=== PATIENT | male | born 1965 | race Caucasian/White ===

== ENCOUNTER 2019-06-11 07:38 | Inpatient (IN) ==
--- NOTE | 2019-06-11 07:56 | Emergency Department Note ---
Disposition Clinical Impression: Suicidal ideation Hyperglycemia due to type 2 diabetes mellitus Qualifiers: Diabetes mellitus longterm insulin use: without longterm use Qualified Code(s): E11.65 - Type 2 diabetes mellitus with hyperglycemia Disposition: Admitted As Inpatient Condition: Undetermined Referrals: NONE,PCP [Primary Care Provider] - Forms: ED Satisfaction Letter Time of Disposition: 14:57 Psych HPI - General Chief Complaint: ED Psychiatric Symptoms Stated Complaint: psych eval Time Seen by Provider: 06/11/19 07:43 Source: patient Limitations: no limitations Nursing Notes Reviewed: Yes Vital Signs Reviewed: Yes - History of Present Illness HPI Narrative: Patient is a 53-year-old male with past medical history including anxiety and depression, hypertension, type 2 diabetes mellitus, Parkinson's disease, recent diagnosis of atrial fibrillation on Coumadin, COPD, presenting with chief complaint of suicidal ideation for one week. Patient states he has a history of suicidal ideation and attempt by prescription medication overdose. He states he has ran out of all of his medications this past week. He has not been able to afford the refill prescriptions. He states his director case management at [employer] has been working with him to afford his medications. He states this past week, he has suicidal ideation. He states he has a plan to jump off the second floor [place] headfirst into the ground or on our in the highway into traffic. He told a worker at the [employer] today who brought him in for further evaluation. The patient also endorses he has visual hallucinations and states he sees animals running around such as lying and elephants. He states he knows that they are not actually there. He denies auditory hallucinations. He denies alcohol use, illicit drug use. He denies homicidal ideation. Patient denies palpitations, chest pain, fevers or chills, changes, shortness of breath, abdominal pain, nausea or vomiting, any other complaints at this time. - Related Data Previous Rx's Medication Instructions Recorded Aspirin 81 mg PO DAILY #14 tab.chew 06/03/19 Atorvastatin [Lipitor] 10 mg PO HS #14 tablet 06/03/19 Benztropine [Cogentin] 0.5 mg PO HS #14 tablet 06/03/19 Benztropine [Cogentin] 2 mg PO HS #28 tablet 06/03/19 Carbidopa/Levodopa [Sinemet 1 each PO DAILY #14 tablet 07/19/19 10/100] Carvedilol 3.125 mg PO DAILY #14 tablet 06/03/19 Citalopram Hydrobromide 10 mg PO DAILY #14 tablet 06/03/19 [Citalopram HBr] Divalproex (12 HR) [Depakote (12 500 mg PO QAM #14 tablet. 06/03/19 HR)] Divalproex (12 HR) [Depakote (12 750 mg PO HS #42 tablet. 06/03/19 HR)] Finasteride [Proscar] 5 mg PO DAILY #14 tablet 06/03/19 GlipiZIDE [Glipizide Xl] 5 mg PO DAILY #14 tab.er.24 06/03/19 Lisinopril 2.5 mg PO DAILY #14 tablet 06/03/19 [place] [facility] [Eskalith] 450 mg PO HS #14 tablet.er 06/03/19 Perphenazine 4 mg PO BID #28 tablet 06/03/19 Warfarin Sodium 3 mg PO DAILY #14 tablet 06/03/19 hydrOXYzine HCl [Hydroxyzine HCl] 50 mg PO DAILY #14 tablet 06/03/19 metFORMIN [Glucophage] 1,000 mg PO BIDWM 14 Days tablet 06/03/19 Allergies Allergy/AdvReac Type Severity Reaction Status Date / Time naproxen [From Naprosyn] AdvReac Difficulty Verified 06/05/19 18:31 Breathing All systems ED: reviewed and negative except as stated. Review of Systems: As Per HPI Constitutional: Denies: fever, chills Eyes: Denies: vision change ENT ED: Denies: congestion Cardiovascular: Denies: chest pain, palpitations Respiratory: Denies: cough, dyspnea Gastrointestinal: Denies: abdominal pain, nausea, vomiting Genitourinary: Denies: dysuria, hematuria Neurological: Denies: headache, weakness Psychiatric: Reports: anxiety, suicidal thoughts, visual hallucinations. Denies: homicidal thoughts, auditory hallucinations Past Medical History - Past Medical History Attestation: Yes The following information was validated with the patient. Source: patient, old records reviewed Medical history: Reports: atrial fibrillation, COPD, DVT, diabetes, hypertension, myocardial infarction, seizures, other Psychiatric history: Reports: no psych history - Social History Smoking Status: Never smoker Smokeless Tobacco Status: No Alcohol use: Reports: occasionally Drug use: Reports: none Physical Exam - General Limitations: no limitations General appearance: alert, in no apparent distress - Head Head exam: atraumatic, normocephalic - Eye Eye exam: Present: normal appearance, EOMI - ENT ENT exam: normal exam, mucous membranes moist - Neck Neck exam: Present: normal inspection, trachea midline - Chest Chest inspection: Present: normal inspection, symmetric chest wall rise - Respiratory Respiratory exam: Present: normal lung sounds bilaterally. Absent: respiratory distress, wheezes - Cardiovascular Cardiovascular exam: Present: regular rate, normal rhythm, normal heart sounds. Absent: systolic murmur - Abdominal Exam Abdominal exam: Present: soft, Non-Tender. Absent: distention - Extremities Exam Extremities exam: Present: normal capillary refill. Absent: pedal edema, calf tenderness - Neurological Exam Neurological exam: Present: alert, oriented X3 - Psychiatric Psychiatric exam: Present: anxious, suicidal ideation - Skin Skin exam: Present: warm, dry. Absent: diaphoresis, pallor Course Vital Signs Temperature 97.7 F 06/11/19 07:39 Pulse Rate 87 06/11/19 07:39 Respiratory Rate 18 06/11/19 07:39 Blood Pressure 174/67 06/11/19 07:39 O2 Sat by Pulse Oximetry 97 06/11/19 07:39 Temperature 97.7 F 06/11/19 07:48 Pulse Rate 87 06/11/19 07:48 Respiratory Rate 18 06/11/19 07:48 Blood Pressure 174/67 06/11/19 07:48 O2 Sat by Pulse Oximetry 97 06/11/19 07:48 Oxygen Delivery Oxygen Delivery Room Air Psych - MDM Narrative Medical decision making narrative: Patient is presenting with suicidal ideation and has a plan. He has been out of his medications for 1 week as he cannot afford his refills. Patient has been placed on an involuntary hold and pink slip has been signed. He will benefit from psychiatric evaluation. We will obtain medical clearance including CBC, BMP, alcohol, salicylate, acetaminophen levels, urine drug screen, urinalysis. Will also obtain ekg as he has a history of AFib and PT/INR. 09:15 Patient's glucose is 503. He has been off his oral hypoglycemic medications for the past week. He is not altered, tachycardic. We will give him 10 units subcutaneous insulin regular and do Accu-Chek 30 minutes after. 10;15 Will obtain repeat accu-check and call [facility] for evaluation. 10:20 Patient's repeat glucose is 277. Patient is medically cleared. [facility] has been called to evaluate the patient. 12:45 1A would like us to talk to hospitalist to admit to them to get the patient back on his medications and have hi glucose levels controlled prior to their evaluation and re-evaluate in 24 hours. However patient does not meet inpatient criteria for an acute medical bed. He does not have HHs or DKA. He does not have any chest pain, vomiting, abnormal vital signs, abdominal pain. 13:[address] Galan. Hospitalist will not accept the patient. He does not meet criteria for an acute bed. They are happy to be consultation to help assist with the patient's other home medications when the patient is admitted to a psychiatric bed. 14:00 Discussed with psychiatry who would like a repeat blood glucose and the RN will talk to the psychiatrist again about admitting the patient. Repeat blood glucose was 168. 14:50 Discussed with [facility] who will admit the patient. - Lab Data Result diagrams: 06/11/19 07:52 06/11/19 07:52 Lab Results 06/11/19 06/11/19 06/11/19 Range/Units 07:52 07:52 07:55 WBC 6.8 (4.3-11.1) K/mcL RBC 4.25 (4.19-5.50) M/mcL Hgb 13.1 (12.9-16.9) g/dL Hct 39.2 (37.5-50.1) % MCV 92.2 (83.0-100.0) fL MCH 30.8 (28.0-33.3) pg MCHC 33.4 (31.6-35.5) g/dL RDW 13.2 (11.5-14.5) % Plt Count 181 (140-400) K/mcL MPV 9.6 (9.4-12.4) fL Immature Gran % 0.3 (0-4) % Seg Neutrophils % 56.5 % Lymphocytes % 23.9 % Monocytes % 8.7 % Eosinophils % 9.7 % Basophils % 0.9 % Neutrophils # 3.9 (1.6-8.9) K/mcL Lymphocytes # 1.6 (0.6-4.6) K/mcL Monocytes # 0.6 (0.0-1.3) K/mcL Eosinophils # 0.7 H (0.0-0.6) K/mcL Basophils # 0.1 (0.0-0.2) K/mcL PT 11.1 (9.4-12.1) Seconds INR 1.0 Sodium 131 L (136-145) mEq/L Potassium 4.6 (3.5-5.1) mEq/L Chloride 100 (98-107) mEq/L Carbon Dioxide 24 (23-29) mEq/L BUN 14 (6-20) mg/dL Creatinine 1.40 H (0.70-1.30) mg/dL Est GFR ( Amer) > 60 (> 60) Est GFR (Non-Af Amer) 53 L (> 60) BUN/Creatinine Ratio 10 (6-26) Glucose 503 H* (70-105) mg/dL POC Glucose (70-99) mg/dL Calculated Osmolality 295 (280-300) Calcium 9.0 (8.6-10.3) mg/dL Urine Color (Yellow) Urine Clarity (Clear) Urine pH (5.0-8.0) pH Units Ur Specific [place] (1.010-1.025) Urine Protein (Neg-Trace) mg/dL Urine Glucose (UA) (Normal) mg/dL Urine Ketones (Negative) mg/dL Urine Blood (Negative) Urine Nitrite (Negative) Urine Bilirubin (Negative) Urine Urobilinogen (Normal) mg/dL Ur Leukocyte Esterase (Negative) Salicylates < 2.5 L (15.0-30.0) mg/dL Urine Opiates Screen (Bmxdoe=394) ng/mL Ur Buprenorphine Scrn (Cutoff=5) ng/mL Acetaminophen < 10 L (10-20) mcg/mL Ur Barbiturates Screen (Skuomh=942) ng/mL Ur Phencyclidine Scrn (Cutoff=25) ng/mL Ur Amphetamines Screen (Wenhyk=1802) ng/mL U Benzodiazepines Scrn (Gijrty=658) ng/mL Urine Cocaine Screen (Cutoff= 300) ng/mL U Marijuana (THC) Screen (Cutoff = 50) ng/mL Ur Drug Screen Interp Ethyl Alcohol < 10 (Less than 10) mg/dL 06/11/19 06/11/19 06/11/19 Range/Units 08:55 08:55 10:19 WBC (4.3-11.1) K/mcL RBC (4.19-5.50) M/mcL Hgb (12.9-16.9) g/dL Hct (37.5-50.1) % MCV (83.0-100.0) fL MCH (28.0-33.3) pg MCHC (31.6-35.5) g/dL RDW (11.5-14.5) % Plt Count (140-400) K/mcL MPV (9.4-12.4) fL Immature Gran % (0-4) % Seg Neutrophils % % Lymphocytes % % Monocytes % % Eosinophils % % Basophils % % Neutrophils # (1.6-8.9) K/mcL Lymphocytes # (0.6-4.6) K/mcL Monocytes # (0.0-1.3) K/mcL Eosinophils # (0.0-0.6) K/mcL Basophils # (0.0-0.2) K/mcL PT (9.4-12.1) Seconds INR Sodium (136-145) mEq/L Potassium (3.5-5.1) mEq/L Chloride (98-107) mEq/L Carbon Dioxide (23-29) mEq/L BUN (6-20) mg/dL Creatinine (0.70-1.30) mg/dL Est GFR ( Amer) (> 60) Est GFR (Non-Af Amer) (> 60) BUN/Creatinine Ratio (6-26) Glucose (70-105) mg/dL POC Glucose 277 H (70-99) mg/dL Calculated Osmolality (280-300) Calcium (8.6-10.3) mg/dL Urine Color Yellow (Yellow) Urine Clarity Clear (Clear) Urine pH 7.0 (5.0-8.0) pH Units Ur Specific [place] 1.030 H (1.010-1.025) Urine Protein Negative (Neg-Trace) mg/dL Urine Glucose (UA) >=1000 H (Normal) mg/dL Urine Ketones Negative (Negative) mg/dL Urine Blood Negative (Negative) Urine Nitrite Negative (Negative) Urine Bilirubin Negative (Negative) Urine Urobilinogen Normal (Normal) mg/dL Ur Leukocyte Esterase Negative (Negative) Salicylates (15.0-30.0) mg/dL Urine Opiates Screen Negative (Ptwwjv=210) ng/mL Ur Buprenorphine Scrn Negative (Cutoff=5) ng/mL Acetaminophen (10-20) mcg/mL Ur Barbiturates Screen Negative (Cajcjo=094) ng/mL Ur Phencyclidine Scrn Negative (Cutoff=25) ng/mL Ur Amphetamines Screen Negative (Nxghdh=8521) ng/mL U Benzodiazepines Scrn Negative (Sjsuzs=792) ng/mL Urine Cocaine Screen Negative (Cutoff= 300) ng/mL U Marijuana (THC) Screen Negative (Cutoff = 50) ng/mL Ur Drug Screen Interp See Below Ethyl Alcohol (Less than 10) mg/dL 06/11/19 Range/Units 14:08 WBC (4.3-11.1) K/mcL RBC (4.19-5.50) M/mcL Hgb (12.9-16.9) g/dL Hct (37.5-50.1) % MCV (83.0-100.0) fL MCH (28.0-33.3) pg MCHC (31.6-35.5) g/dL RDW (11.5-14.5) % Plt Count (140-400) K/mcL MPV (9.4-12.4) fL Immature Gran % (0-4) % Seg Neutrophils % % Lymphocytes % % Monocytes % % Eosinophils % % Basophils % % Neutrophils # (1.6-8.9) K/mcL Lymphocytes # (0.6-4.6) K/mcL Monocytes # (0.0-1.3) K/mcL Eosinophils # (0.0-0.6) K/mcL Basophils # (0.0-0.2) K/mcL PT (9.4-12.1) Seconds INR Sodium (136-145) mEq/L Potassium (3.5-5.1) mEq/L Chloride (98-107) mEq/L Carbon Dioxide (23-29) mEq/L BUN (6-20) mg/dL Creatinine (0.70-1.30) mg/dL Est GFR ( Amer) (> 60) Est GFR (Non-Af Amer) (> 60) BUN/Creatinine Ratio (6-26) Glucose (70-105) mg/dL POC Glucose 168 H (70-99) mg/dL Calculated Osmolality (280-300) Calcium (8.6-10.3) mg/dL Urine Color (Yellow) Urine Clarity (Clear) Urine pH (5.0-8.0) pH Units Ur Specific [place] (1.010-1.025) Urine Protein (Neg-Trace) mg/dL Urine Glucose (UA) (Normal) mg/dL Urine Ketones (Negative) mg/dL Urine Blood (Negative) Urine Nitrite (Negative) Urine Bilirubin (Negative) Urine Urobilinogen (Normal) mg/dL Ur Leukocyte Esterase (Negative) Salicylates (15.0-30.0) mg/dL Urine Opiates Screen (Iehiqj=765) ng/mL Ur Buprenorphine Scrn (Cutoff=5) ng/mL Acetaminophen (10-20) mcg/mL Ur Barbiturates Screen (Ljhrbw=809) ng/mL Ur Phencyclidine Scrn (Cutoff=25) ng/mL Ur Amphetamines Screen (Ztouap=4710) ng/mL U Benzodiazepines Scrn (Hxnvua=138) ng/mL Urine Cocaine Screen (Cutoff= 300) ng/mL U Marijuana (THC) Screen (Cutoff = 50) ng/mL Ur Drug Screen Interp Ethyl Alcohol (Less than 10) mg/dL - EKG Data EKG attestation: Yes I reviewed and interpreted this EKG. EKG results narrative: EKG obtained at 8 AM shows sinus rhythm with heart rate 76, CT interval 126, QRS duration 90, QTC 436, no ST elevation or depression, no old EKG to compare to. Psychiatric Medical Clearance - Medical Clearance Checklist Medical History: No Social History Section defined Current Vitals: Last Vital Signs Temp 97.7 F 06/11/19 07:48 Pulse 87 06/11/19 07:48 Resp 18 06/11/19 07:48 BP 174/67 06/11/19 07:48 Pulse Ox 97 06/11/19 07:48 Psychiatric Lab Panel: Drug Levels and Toxicity 06/11/19 06/11/19 07:52 08:55 Urine Opiates Screen Negative Acetaminophen < 10 L Ur Barbiturates Screen Negative Ur Phencyclidine Scrn Negative Ur Amphetamines Screen Negative U Benzodiazepines Scrn Negative Urine Cocaine Screen Negative U Marijuana (THC) Screen Negative Ethyl Alcohol < 10 Abnormal Labs: Abnormal lab results Eosinophils # 0.7 K/mcL (0.0-0.6) H 06/11/19 07:52 Sodium 131 mEq/L (136-145) L 06/11/19 07:52 Creatinine 1.40 mg/dL (0.70-1.30) H 06/11/19 07:52 Est GFR (Non-Af Amer) 53 (> 60) L 06/11/19 07:52 Glucose 503 mg/dL (70-105) H* 06/11/19 07:52 POC Glucose 168 mg/dL (70-99) H 06/11/19 14:08 Ur Specific [place] 1.030 (1.010-1.025) H 06/11/19 08:55 Urine Glucose (UA) >=1000 mg/dL (Normal) H 06/11/19 08:55 Salicylates < 2.5 mg/dL (15.0-30.0) L 06/11/19 07:52 Acetaminophen < 10 mcg/mL (10-20) L 06/11/19 07:52 Statement of Medical Clearance: I have evaluated the patient, reviewed diagnostic information, and certify that the patient's medical condition is sufficiently stable that transfer to the psychiatric unit does not pose a significant risk of deterioration. Attestation Statement - Attestation Attestation: Patient was seen with resident physician. I reviewed the history, physical, assessment and plan, and agree with the findings. I also personally evaluated this patient and had [id number] time with this patient. 53-year-old male presents to the emergency department with suicidal ideation. Patient has a history of same. Patient says he is out of his medication for last week or so. This includes medications for A. fib. He said he cannot get them filled physical can afford it. He is currently living at [facility]. He said he feels very depressed and he wants to jump from a balcony or plan on the highway and get hit by a car. He has had suicide attempts in the past. He denies alcohol drugs or other symptoms or complaints at this time. Review systems as above remainder negative. Physical exam vital signs are stable. ENT is unremarkable. Heart regular rhythm and rate. Lungs clear. Abdomen soft nontender. Extremity is unremarkable. Neurologically intact. Skin no rashes. Psych patient is de pressed and has suicidal ideation. ED course. We will do usual psychiatric labs. We will have one a come evaluate the patient. We will also check an EKG this is a history of A. fib. Once medically cleared we will have psychiatry evaluate and help with disposition for this patient. Patient did have an elevated glucose. This resolved with one dose of insulin, and remained stable after lunch. This was not a medically limiting issue. We did speak with the psychiatry service as well as the h ospitalist service about this. He was placed on an involuntary admission status at the time of his arrival in the ER after our initial interview. Hemodynamically he remained stable throughout his stay. The psychiatry department agree to admit the patient. He will be followed by internal medicine as indicated. Agree with the resident physician assessment and plan. ED procedures.I reviewed the patient's EKG as well as the resident physician interpretation and I agree with the findings.
[2019-06-11 08:19] LABS: Basophils # 0.1 K/mcL (0.0-0.2); Basophils % 0.9 %; Eosinophils # 0.7 K/mcL (0.0-0.6); Eosinophils % 9.7 %; Hematocrit 39.2 % (37.5-50.1); Hemoglobin 13.1 g/dL (12.9-16.9); Immature Granulocytes % 0.3 % (0-4); Lymphocytes # 1.6 K/mcL (0.6-4.6); Lymphocytes % 23.9 %; Mean Corpuscular HGB Conc 33.4 g/dL (31.6-35.5); Mean Corpuscular Hemoglobin 30.8 pg (28.0-33.3); Mean Corpuscular Volume 92.2 fL (83.0-100.0); Mean Platelet Volume 9.6 fL (9.4-12.4); Monocytes # 0.6 K/mcL (0.0-1.3); Monocytes % 8.7 %; Neutrophils # 3.9 K/mcL (1.6-8.9); Platelet Count 181 K/mcL (140-400); Red Blood Count 4.25 M/mcL (4.19-5.50); Red Cell Distribution Width 13.2 % (11.5-14.5); Segmented Neutrophils % 56.5 %; White Blood Count 6.8 K/mcL (4.3-11.1)
[2019-06-11 08:28] LABS: Prothrombin Time 11.1 Seconds (9.4-12.1)
[2019-06-11 08:40] LABS: Acetaminophen < 10 mcg/mL (10-20); BUN/Creatinine Ratio 10 (6-26); Blood Urea Nitrogen 14 mg/dL (6-20); Carbon Dioxide 24 mEq/L (23-29); Chloride 100 mEq/L (98-107); Ethanol < 10 mg/dL (Less than 10); Glucose 503 mg/dL (70-105); Osmolality,Calculated 295 (280-300); Potassium 4.6 mEq/L (3.5-5.1); Salicylate < 2.5 mg/dL (15.0-30.0); Sodium 131 mEq/L (136-145); eGFR For African Americans > 60 (> 60); eGFR For Non-African Americans 53 (> 60)
[2019-06-11 09:04] LABS: Bilirubin,Urine Negative (Negative); Blood,Urine Negative (Negative); Clarity,Urine Clear (Clear); Color,Urine Yellow (Yellow); Glucose,Urine (UA) >=1000 mg/dL (Normal); Ketones,Urine Negative (Negative); Leukocyte Esterase,Urine Negative (Negative); Nitrite,Urine Negative (Negative); Protein,Urine Negative (Neg-Trace); Urobilinogen,Urine Normal (Normal)
[2019-06-11] MEDS ORDERED: Insulin Regular, Human 100 UNIT/ML SQ ONE (09:16)
[2019-06-11 09:20] LABS: Amphetamine Screen,Urine Negative ng/mL (Cutoff=1000); Barbiturate Screen,Urine Negative ng/mL (Cutoff=200); Benzodiazepines Screen,Urine Negative ng/mL (Cutoff=200); Cannabinoid Screen,Urine Negative ng/mL (Cutoff = 50); Cocaine Screen,Urine Negative ng/mL (Cutoff= 300); Opiate Screen,Urine Negative ng/mL (Cutoff=300); Phencyclidine Screen,Urine Negative ng/mL (Cutoff=25)
[2019-06-11] MEDS ORDERED: Haloperidol Lactate 5 MG/ML VIAL IM PRN (16:39)
[2019-06-11] MEDS ORDERED: *HR* LORazepam 1 MG TABLET PO PRN (16:39)
[2019-06-11] MEDS ORDERED: *HR* LORazepam 2 MG/ML VIAL IM PRN (16:39)
[2019-06-11] MEDS ORDERED: MOM Conc 10 ML UD.LIQ PO PRN (16:39)
[2019-06-11] MEDS ORDERED: Mag Hydrox/Al Hydrox/Simeth 30 ML UDC PO PRN (16:39)
[2019-06-11] MEDS: *HR* Metformin 500 MG TABLET PO SCH (18:14)
[2019-06-11] MEDS: Acetaminophen 325 MG TABLET PO PRN (20:55)
[2019-06-11] MEDS: traZODone 50 MG TABLET PO PRN (20:56)
[2019-06-11] MEDS: hydrOXYzine pamoate 25 MG CAPSULE PO PRN (20:57)
--- NOTE | 2019-06-12 08:06 | Psychiatry History & Physical ---
Date of Encounter: 06/12/19 Time of Encounter: 07:30 History of Present Illness Patient Stated Chief Complaint: "I want to " Medicare Admission Attestation: For traditional Medicare patients the provided hospital inpatient services are reasonable and necessary and in the case of services not specified as inpatient-only under 42 CFR 419.22 (n), that they are appropriately provided as inpatient services in accordance 42 CFR 412.3. For Critical Access Hospital the patient may reasonably be expected to be discharged or transferred to a hospital within 96 hours after admission to the Critical Access Hospital. Admitted From: Emergency Dept Plans for Post Hospital Care: Transfer Other History of Present Illness: Patient is a 53-year-old male with past medical history including anxiety and depression, hypertension, type 2 diabetes mellitus, Parkinson's disease, recent diagnosis of atrial fibrillation on Coumadin, COPD, presenting with chief complaint of suicidal ideation for one week. Patient states he has a history of suicidal ideation and attempt by prescription medication overdose. He states he has ran out of all of his medications this past week. He has not been able to a fford the refill prescriptions. He states his case hardener at [employer] has been working with him to afford his medications. He states this past week, he has suicidal ideation. He states he has a plan to jump off the second floor [facility] headfirst into the ground or on our in the highway into traffic. He told a worker at the [facility] today who brought him in for further evaluation. The patient also endorses he has visual hallucinations and states he sees animals running around such as lying and elephants. He states he knows that they are not actually there. He denies auditory hallucinations. He denies alcohol use, illicit drug use. He denies homicidal ideation. Patient denies palpitations, chest pain, fevers or chills, changes, shortness of breath, abdominal pain, nausea or vomiting, any other complaints at this time. This morning he continues to endorse depressed mood with sadness, decreased interest, poor sleep, decreased appetite, feelings of guilt and worthlessness, low energy, poor concentration, hopelessness, and ongoing suicidal ideations with plan to jump off the roof of [email or web address] or run into traffic. He does contract for safety on the unit. He has a history of manic symptoms with elevated mood, decreased need for sleep, increased energy, increased risk-taking behaviors, rapid speech, and racing thoughts. He says at times he has had auditory hallucinations telling him to do things. He denies these at present but says get back on his perphenazine soon they will likely start. Past Med Surg Social Fam HX - Past Medical History Medical history: atrial fibrillation, COPD, DVT, diabetes, hypertension, myocardial infarction, seizures, other - Past Psychiatric History Psychiatric history: Reports: bipolar, prior suicide attempt, previous psychiatric hospitalization Past psychiatric history details: He has a history of bipolar disorder he has had prior suicide attempts. He has been in the present for the last 4 years and been treated by other psychiatrists of lithium 450 at bedtime Depakote 500 in the morning 750 at night Cogentin at night perphenazine is seen for twice a day and Celexa 10 AM. He said these medications have been most helpful to him and that everything history in the past did not work as well. He reports prior suicide attempt. He reports prior psychiatric hospitalization. He is getting his outpatient throughout this. Family psychiatric history: No Family History of Suicide: None - Social History Smoking Status: Never smoker Smokeless Tobacco Status: No Alcohol use: occasionally Drug use: none Occupational status: disabled Current living situation: Other ([facility] has) Activity Level: Independent ambulation Recent Out of Country Travel Within the Last 8 Weeks: No Exposure or Possible Exposure to Illness During Travel: No Additional social history: He just spent 4 years in intermediate and is a registered sex offender with an ankle monitor. - Family History Mother Adopted: [place]: Sherry Age: 68 Living Status: Age at : 68 Cause of : CHF Hx Family Cardiac Disorders: Yes Hx Family Respiratory Disorders: Yes Hx Family Cancer: No Hx Family GI Disorders: No Hx Family Genitourinary Disorders: No Hx Family Endocrine Disorder: No Hx Family Musculoskeletal Disorders: No Hx Family Neuromuscular Disorders: No Hx Family Neurologic Disorders: No Hx Family HEENT Disorders: No Hx Family Autoimmune Disorders: No Hx Family Reproductive Disorders: No Hx Family Psychosocial Disorders: No Hx Family Medical Disorders: No Medications & Allergies Aspirin 81 mg PO DAILY #14 tab.chew 06/03/19 [Rx] Atorvastatin [Lipitor] 10 mg PO HS #14 tablet 06/03/19 [Rx] Benztropine [Cogentin] 0.5 mg PO HS #14 tablet 06/03/19 [Rx] Benztropine [Cogentin] 2 mg PO HS #28 tablet 06/03/19 [Rx] Carbidopa/Levodopa 10/100 [Sinemet 10/100] 1 each PO DAILY #14 tablet 06/03/19 [Rx] Carvedilol 3.125 mg PO DAILY #14 tablet 06/03/19 [Rx] Citalopram Hydrobromide [Citalopram HBr] 10 mg PO DAILY #14 tablet 06/03/19 [Rx] Divalproex (12 HR) [Depakote (12 HR)] 500 mg PO QAM #14 tablet. 06/03/19 [Rx] Divalproex (12 HR) [Depakote (12 HR)] 750 mg PO HS #42 tablet. 06/03/19 [Rx] Finasteride [Proscar] 5 mg PO DAILY #14 tablet 06/03/19 [Rx] GlipiZIDE [Glipizide Xl] 5 mg PO DAILY #14 tab.er.24 06/03/19 [Rx] Lisinopril 2.5 mg PO DAILY #14 tablet 06/03/19 [Rx] [place] Carbonate ER [Eskalith] 450 mg PO HS #14 tablet.er 06/03/19 [Rx] Perphenazine 4 mg PO BID #28 tablet 06/03/19 [Rx] Warfarin Sodium 3 mg PO DAILY #14 tablet 06/03/19 [Rx] hydrOXYzine HCl [Hydroxyzine HCl] 50 mg PO DAILY #14 tablet 06/03/19 [Rx] metFORMIN [Glucophage] 1,000 mg PO BIDWM 14 Days tablet 06/03/19 [Rx] Allergy/AdvReac Type Severity Reaction Status Date / Time naproxen [From Naprosyn] AdvReac Difficulty Verified 06/05/19 18:31 Breathing Review of Systems Constitutional: Denies: fever Eyes: Denies: eye pain Ears, Nose, Throat: Denies: ear pain Cardiovascular: Denies: chest pain Respiratory: Denies: cough Gastrointestinal: Denies: abdominal pain Genitourinary male: Denies: urgency Musculoskeletal: Denies: back pain Integumentary: Denies: rash Neurological: Reports: abnormal gait (Shuffling), other (Pill-rolling tremor) Psychiatric: Reports: depression, abnormal sleep pattern, suicidal ideation, anhedonia, difficulty concentrating, hopelessness. Denies: homicidal ideation, auditory hallucinations, visual hallucinations Endocrine: Reports: fatigue Hematologic/Lymphatic: Reports: easy bleeding (On Coumadin), easy bruising (On Coumadin) Allergic/Immunologic: Denies: facial swelling Exam - HEENT Head exam IM: Present: atraumatic Eye exam IM: Present: EOMI ENT exam IM: Present: mucous membranes moist - Neurological Neurological exam: Present: CN II-XII intact (Grossly) - Respiratory Respiratory exam IM: Absent: respiratory distress - GI/Abdominal GI/Abdominal exam IM: Present: no peritoneal signs - Extremities Extremities exam IM: Present: full ROM - Skin Skin exam IM: Absent: abrasion - Constitutional Vitals: Temp Pulse Resp BP Pulse Ox 98.1 F 77 16 161/77 97 06/11/19 21:00 06/11/19 21:00 06/11/19 21:00 06/11/19 21:00 06/11/19 21:00 General appearance: age & developmentally appropriate, disheveled - Musculoskeletal Gait: slow, shuffling Station: stooped Strength & Tone: normal for patient - Psychiatric Patient Orientation: Yes Person, Yes Time, Yes Place, Yes Circumstance Level of alertness: Alert Behavior: tearful Psychomotor activity: Slowed Eye Contact: Minimal Contact Mood Description: Depressed Patient description of mood: Sad Affect description: congruent with mood Speech Volume: Soft/Quiet Speech pattern: slowed Language & Vocabulary: consistent with education Thought Process: Linear, Goal Oriented Thought Content: Yes Suicidal ideation Perceptual Disturbances: No Auditory hallucinations, No Visual hallucinations Attention Span Ability: Capable of Focused Attention Memory Description: Grossly Intact Patient Reliability: Reliable Historian Fund of knowledge: Yes abstraction ability, Yes average, Yes aware of current events Intelligence Estimate: Average Judgment: Limited Insight: Minimal Results - Drug Levels and Toxicology Drug Levels and Toxicology: Drug Levels and Toxicity 06/11/19 06/11/19 07:52 08:55 Urine Opiates Screen Negative Acetaminophen < 10 L Ur Barbiturates Screen Negative Ur Phencyclidine Scrn Negative Ur Amphetamines Screen Negative U Benzodiazepines Scrn Negative Urine Cocaine Screen Negative U Marijuana (THC) Screen Negative Ethyl Alcohol < 10 Lab Results 06/11/19 06/11/19 06/11/19 Range/Units 07:52 07:52 07:55 WBC 6.8 (4.3-11.1) K/mcL RBC 4.25 (4.19-5.50) M/mcL Hgb 13.1 (12.9-16.9) g/dL Hct 39.2 (37.5-50.1) % MCV 92.2 (83.0-100.0) fL MCH 30.8 (28.0-33.3) pg MCHC 33.4 (31.6-35.5) g/dL RDW 13.2 (11.5-14.5) % Plt Count 181 (140-400) K/mcL MPV 9.6 (9.4-12.4) fL Immature Gran % 0.3 (0-4) % Seg Neutrophils % 56.5 % Lymphocytes % 23.9 % Monocytes % 8.7 % Eosinophils % 9.7 % Basophils % 0.9 % Neutrophils # 3.9 (1.6-8.9) K/mcL Lymphocytes # 1.6 (0.6-4.6) K/mcL Monocytes # 0.6 (0.0-1.3) K/mcL Eosinophils # 0.7 H (0.0-0.6) K/mcL Basophils # 0.1 (0.0-0.2) K/mcL PT 11.1 (9.4-12.1) Seconds INR 1.0 Sodium 131 L (136-145) mEq/L Potassium 4.6 (3.5-5.1) mEq/L Chloride 100 (98-107) mEq/L Carbon Dioxide 24 (23-29) mEq/L BUN 14 (6-20) mg/dL Creatinine 1.40 H (0.70-1.30) mg/dL Est GFR ( Amer) > 60 (> 60) Est GFR (Non-Af Amer) 53 L (> 60) BUN/Creatinine Ratio 10 (6-26) Glucose 503 H* (70-105) mg/dL POC Glucose (70-99) mg/dL Calculated Osmolality 295 (280-300) Calcium 9.0 (8.6-10.3) mg/dL Urine Color (Yellow) Urine Clarity (Clear) Urine pH (5.0-8.0) pH Units Ur Specific [place] (1.010-1.025) Urine Protein (Neg-Trace) mg/dL Urine Glucose (UA) (Normal) mg/dL Urine Ketones (Negative) mg/dL Urine Blood (Negative) Urine Nitrite (Negative) Urine Bilirubin (Negative) Urine Urobilinogen (Normal) mg/dL Ur Leukocyte Esterase (Negative) Salicylates < 2.5 L (15.0-30.0) mg/dL Urine Opiates Screen (Lpmivz=481) ng/mL Ur Buprenorphine Scrn (Cutoff=5) ng/mL Acetaminophen < 10 L (10-20) mcg/mL Ur Barbiturates Screen (Pghckj=761) ng/mL Ur Phencyclidine Scrn (Cutoff=25) ng/mL Ur Amphetamines Screen (Tckxkq=8590) ng/mL U Benzodiazepines Scrn (Zkpewf=631) ng/mL Urine Cocaine Screen (Cutoff= 300) ng/mL U Marijuana (THC) Screen (Cutoff = 50) ng/mL Ur Drug Screen Interp Ethyl Alcohol < 10 (Less than 10) mg/dL 06/11/19 06/11/19 06/11/19 Range/Units 08:55 08:55 10:19 WBC (4.3-11.1) K/mcL RBC (4.19-5.50) M/mcL Hgb (12.9-16.9) g/dL Hct (37.5-50.1) % MCV (83.0-100.0) fL MCH (28.0-33.3) pg MCHC (31.6-35.5) g/dL RDW (11.5-14.5) % Plt Count (140-400) K/mcL MPV (9.4-12.4) fL Immature Gran % (0-4) % Seg Neutrophils % % Lymphocytes % % Monocytes % % Eosinophils % % Basophils % % Neutrophils # (1.6-8.9) K/mcL Lymphocytes # (0.6-4.6) K/mcL Monocytes # (0.0-1.3) K/mcL Eosinophils # (0.0-0.6) K/mcL Basophils # (0.0-0.2) K/mcL PT (9.4-12.1) Seconds INR Sodium (136-145) mEq/L Potassium (3.5-5.1) mEq/L Chloride (98-107) mEq/L Carbon Dioxide (23-29) mEq/L BUN (6-20) mg/dL Creatinine (0.70-1.30) mg/dL Est GFR ( Amer) (> 60) Est GFR (Non-Af Amer) (> 60) BUN/Creatinine Ratio (6-26) Glucose (70-105) mg/dL POC Glucose 277 H (70-99) mg/dL Calculated Osmolality (280-300) Calcium (8.6-10.3) mg/dL Urine Color Yellow (Yellow) Urine Clarity Clear (Clear) Urine pH 7.0 (5.0-8.0) pH Units Ur Specific [place] 1.030 H (1.010-1.025) Urine Protein Negative (Neg-Trace) mg/dL Urine Glucose (UA) >=1000 H (Normal) mg/dL Urine Ketones Negative (Negative) mg/dL Urine Blood Negative (Negative) Urine Nitrite Negative (Negative) Urine Bilirubin Negative (Negative) Urine Urobilinogen Normal (Normal) mg/dL Ur Leukocyte Esterase Negative (Negative) Salicylates (15.0-30.0) mg/dL Urine Opiates Screen Negative (Ofsppm=561) ng/mL Ur Buprenorphine Scrn Negative (Cutoff=5) ng/mL Acetaminophen (10-20) mcg/mL Ur Barbiturates Screen Negative (Zxrpbu=608) ng/mL Ur Phencyclidine Scrn Negative (Cutoff=25) ng/mL Ur Amphetamines Screen Negative (Plhtfe=3574) ng/mL U Benzodiazepines Scrn Negative (Pecqej=760) ng/mL Urine Cocaine Screen Negative (Cutoff= 300) ng/mL U Marijuana (THC) Screen Negative (Cutoff = 50) ng/mL Ur Drug Screen Interp See Below Ethyl Alcohol (Less than 10) mg/dL 06/11/19 06/11/19 Range/Units 14:08 18:00 WBC (4.3-11.1) K/mcL RBC (4.19-5.50) M/mcL Hgb (12.9-16.9) g/dL Hct (37.5-50.1) % MCV (83.0-100.0) fL MCH (28.0-33.3) pg MCHC (31.6-35.5) g/dL RDW (11.5-14.5) % Plt Count (140-400) K/mcL MPV (9.4-12.4) fL Immature Gran % (0-4) % Seg Neutrophils % % Lymphocytes % % Monocytes % % Eosinophils % % Basophils % % Neutrophils # (1.6-8.9) K/mcL Lymphocytes # (0.6-4.6) K/mcL Monocytes # (0.0-1.3) K/mcL Eosinophils # (0.0-0.6) K/mcL Basophils # (0.0-0.2) K/mcL PT (9.4-12.1) Seconds INR Sodium (136-145) mEq/L Potassium (3.5-5.1) mEq/L Chloride (98-107) mEq/L Carbon Dioxide (23-29) mEq/L BUN (6-20) mg/dL Creatinine (0.70-1.30) mg/dL Est GFR ( Amer) (> 60) Est GFR (Non-Af Amer) (> 60) BUN/Creatinine Ratio (6-26) Glucose (70-105) mg/dL POC Glucose 168 H 265 H (70-99) mg/dL Calculated Osmolality (280-300) Calcium (8.6-10.3) mg/dL Urine Color (Yellow) Urine Clarity (Clear) Urine pH (5.0-8.0) pH Units Ur Specific [place] (1.010-1.025) Urine Protein (Neg-Trace) mg/dL Urine Glucose (UA) (Normal) mg/dL Urine Ketones (Negative) mg/dL Urine Blood (Negative) Urine Nitrite (Negative) Urine Bilirubin (Negative) Urine Urobilinogen (Normal) mg/dL Ur Leukocyte Esterase (Negative) Salicylates (15.0-30.0) mg/dL Urine Opiates Screen (Sqxgje=377) ng/mL Ur Buprenorphine Scrn (Cutoff=5) ng/mL Acetaminophen (10-20) mcg/mL Ur Barbiturates Screen (Jsoxau=010) ng/mL Ur Phencyclidine Scrn (Cutoff=25) ng/mL Ur Amphetamines Screen (Bmqrle=7440) ng/mL U Benzodiazepines Scrn (Gkgeko=494) ng/mL Urine Cocaine Screen (Cutoff= 300) ng/mL U Marijuana (THC) Screen (Cutoff = 50) ng/mL Ur Drug Screen Interp Ethyl Alcohol (Less than 10) mg/dL - Labs Labs: Laboratory Last Values WBC 6.8 K/mcL (4.3-11.1) 06/11/19 07:52 RBC 4.25 M/mcL (4.19-5.50) 06/11/19 07:52 Hgb 13.1 g/dL (12.9-16.9) 06/11/19 07:52 Hct 39.2 % (37.5-50.1) 06/11/19 07:52 MCV 92.2 fL (83.0-100.0) 06/11/19 07:52 MCH 30.8 pg (28.0-33.3) 06/11/19 07:52 MCHC 33.4 g/dL (31.6-35.5) 06/11/19 07:52 RDW 13.2 % (11.5-14.5) 06/11/19 07:52 Plt Count 181 K/mcL (140-400) 06/11/19 07:52 MPV 9.6 fL (9.4-12.4) 06/11/19 07:52 Immature Gran % 0.3 % (0-4) 06/11/19 07:52 Seg Neutrophils % 56.5 % 06/11/19 07:52 Lymphocytes % 23.9 % 06/11/19 07:52 Monocytes % 8.7 % 06/11/19 07:52 Eosinophils % 9.7 % 06/11/19 07:52 Basophils % 0.9 % 06/11/19 07:52 Neutrophils # 3.9 K/mcL (1.6-8.9) 06/11/19 07:52 Lymphocytes # 1.6 K/mcL (0.6-4.6) 06/11/19 07:52 Monocytes # 0.6 K/mcL (0.0-1.3) 06/11/19 07:52 Eosinophils # 0.7 K/mcL (0.0-0.6) H 06/11/19 07:52 Basophils # 0.1 K/mcL (0.0-0.2) 06/11/19 07:52 PT 11.1 Seconds (9.4-12.1) 06/11/19 07:55 INR 1.0 06/11/19 07:55 Sodium 131 mEq/L (136-145) L 06/11/19 07:52 Potassium 4.6 mEq/L (3.5-5.1) 06/11/19 07:52 Chloride 100 mEq/L (98-107) 06/11/19 07:52 Carbon Dioxide 24 mEq/L (23-29) 06/11/19 07:52 BUN 14 mg/dL (6-20) 06/11/19 07:52 Creatinine 1.40 mg/dL (0.70-1.30) H 06/11/19 07:52 Est GFR ( Amer) > 60 (> 60) 06/11/19 07:52 Est GFR (Non-Af Amer) 53 (> 60) L 06/11/19 07:52 BUN/Creatinine Ratio 10 (6-26) 06/11/19 07:52 Glucose 503 mg/dL (70-105) H* 06/11/19 07:52 POC Glucose 265 mg/dL (70-99) H 06/11/19 18:00 Calculated Osmolality 295 (280-300) 06/11/19 07:52 Calcium 9.0 mg/dL (8.6-10.3) 06/11/19 07:52 Urine Color Yellow (Yellow) 06/11/19 08:55 Urine Clarity Clear (Clear) 06/11/19 08:55 Urine pH 7.0 pH Units (5.0-8.0) 06/11/19 08:55 Ur Specific [place] 1.030 (1.010-1.025) H 06/11/19 08:55 Urine Protein Negative mg/dL (Neg-Trace) 06/11/19 08:55 Urine Glucose (UA) >=1000 mg/dL (Normal) H 06/11/19 08:55 Urine Ketones Negative mg/dL (Negative) 06/11/19 08:55 Urine Blood Negative (Negative) 06/11/19 08:55 Urine Nitrite Negative (Negative) 06/11/19 08:55 Urine Bilirubin Negative (Negative) 06/11/19 08:55 Urine Urobilinogen Normal mg/dL (Normal) 06/11/19 08:55 Ur Leukocyte Esterase Negative (Negative) 06/11/19 08:55 Salicylates < 2.5 mg/dL (15.0-30.0) L 06/11/19 07:52 Urine Opiates Screen Negative ng/mL (Ftcsor=721) 06/11/19 08:55 Ur Buprenorphine Scrn Negative ng/mL (Cutoff=5) 06/11/19 08:55 Acetaminophen < 10 mcg/mL (10-20) L 06/11/19 07:52 Ur Barbiturates Screen Negative ng/mL (Cokqdo=660) 06/11/19 08:55 Ur Phencyclidine Scrn Negative ng/mL (Cutoff=25) 06/11/19 08:55 Ur Amphetamines Screen Negative ng/mL (Hexyhh=5077) 06/11/19 08:55 U Benzodiazepines Scrn Negative ng/mL (Ozdwkr=965) 06/11/19 08:55 Urine Cocaine Screen Negative ng/mL (Cutoff= 300) 06/11/19 08:55 U Marijuana (THC) Screen Negative ng/mL (Cutoff = 50) 06/11/19 08:55 Ur Drug Screen Interp See Below 06/11/19 08:55 Ethyl Alcohol < 10 mg/dL (Less than 10) 06/11/19 07:52 Assessment and Plan (1) Bipolar disorder current episode depressed Current visit: Yes Status: Acute Plan: Admit inpatient for safety and stabilization, Close observation, Suicide Precautions per unit protocol, Encourage participation in unit milieu, Group Therapy, Monitor sleep, Monitor appetite Additional Plan: Restart his lithium 450 at night, Depakote 500 morning 750 at night, Cogentin, perphenazine 4 mg twice a day and Celexa 10 mg every morning. He does not want to go up on the Celexa at this time. We discussed that perphenazine is an older antipsychotic may be associated with more risks particularly with his Parkinson's and movement disorders however he does not want to change this. I also discussed with him the risks around lithium and his kidneys SIADH and thyroid problems as well as Depakote and end organ damage, liver problems, hematologic problems however he has capacity to make decisions medically and says these are the only medications that have ever been beneficial. His group attendance. Reviewed Interval hx Review any current labs Pt had an opportunity to ask questions and discuss current treatment plan. Supportive therapy was provided Pt encouraged to consider group or individual therapy Pt was in agreement with treatment plan. Pt was educated on the risks benefits and side effects of current medications and alternatives as well as the risks and benefits of no medication. AIMS = 0 lipids and hgba1c Risks, benefits, side effects, alternatives discussed w/pt: Yes Patient agreeable to treatment: Yes Plans for Post Hospital Care: Home Estimated Length of Stay (Days): 5 Qualifiers: Current episode severity: severe Psychotic features: without psychotic features Qualified Code(s): F31.4 - Bipolar disorder, current episode depressed, severe, without psychotic features
[2019-06-12] MEDS ORDERED: D5% in Water 1,000 ML IVC PRN (09:41)
[2019-06-12] MEDS ORDERED: *HR* Dextrose 50 % in Water (Syg) 50 ML SYRINGE IVP PRN (09:41)
[2019-06-12] MEDS ORDERED: Dextrose Gel 15 GM/37.5 ML TUBE PO PRN ×4 (09:41→22:12)
[2019-06-12] MEDS: Aspirin 81 MG TAB.CHEW PO SCH (09:54)
[2019-06-12] MEDS: *HR* GlipiZIDE XL (24 HR) 2.5 MG TABLET PO SCH (09:55)
[2019-06-12] MEDS: Finasteride 5 MG TABLET PO SCH (09:55)
[2019-06-12] MEDS: hydrOXYzine pamoate 25 MG CAPSULE PO SCH (09:58)
[2019-06-12] MEDS: *HR* Metformin 500 MG TABLET PO SCH ×2 (09:58→16:59)
--- NOTE | 2019-06-12 11:39 | Electrocardiograph Report ---
[address] [address] Test Date: 2019-06-11 Pat Name: Jordan Cummings Department: EXAM3 Room: 1A21 Gender: M Sample [place]yer: : 1965 Requested By: Elba Mitchell Order Number: [id number] Reading MD: Cassy Aviles Measurements Intervals [place] Rate: 76 P: 42 AR: 126 QRS: 19 QRSD: 90 T: 21 QT: 387 QTc: 436 Interpretive Statements Sinus rhythm Electronically Signed On 06-12-2019 11:38:20 EDT by Cassy Aviles
[2019-06-12] MEDS: Insulin LISPRO 300 UNITS/3 ML VIAL SQ SCH ×3 (12:15→21:15)
[2019-06-12] MEDS: Perphenazine 2 MG TABLET PO SCH ×2 (12:19→21:14)
[2019-06-12] MEDS ORDERED: Warfarin perPT PO PRN (18:00)
[2019-06-12] MEDS ORDERED: *HR* Warfarin 3 MG TABLET PO ONE (18:00)
[2019-06-12] MEDS ORDERED: *HR* Warfarin 3 MG TABLET PO SCH (18:00)
[2019-06-12] MEDS: hydrOXYzine pamoate 25 MG CAPSULE PO PRN (21:12)
[2019-06-12] MEDS: Divalproex (12 HR) 250 MG TABLET PO SCH (21:12)
[2019-06-12] MEDS: Acetaminophen 325 MG TABLET PO PRN (21:13)
[2019-06-12] MEDS: traZODone 50 MG TABLET PO PRN (21:14)
[2019-06-12] MEDS: Lithium Carbonate ER 450 MG TABLET.ER PO SCH (21:15)
[2019-06-12] MEDS ORDERED: Insulin LISPRO 300 UNITS/3 ML VIAL SQ ONE (22:15)
[2019-06-13] MEDS: Insulin LISPRO 300 UNITS/3 ML VIAL SQ SCH ×4 (07:57→20:59)
[2019-06-13] MEDS: *HR* GlipiZIDE XL (24 HR) 2.5 MG TABLET PO SCH (08:23)
[2019-06-13] MEDS: Aspirin 81 MG TAB.CHEW PO SCH (08:24)
[2019-06-13] MEDS: hydrOXYzine pamoate 25 MG CAPSULE PO SCH (08:24)
[2019-06-13] MEDS: Finasteride 5 MG TABLET PO SCH (08:24)
[2019-06-13] MEDS: *HR* Metformin 500 MG TABLET PO SCH ×2 (08:25→17:30)
[2019-06-13] MEDS: Perphenazine 2 MG TABLET PO SCH ×2 (08:26→21:03)
[2019-06-13 08:51] LABS: INR 0.9; Prothrombin Time 10.4 Seconds (9.4-12.1)
[2019-06-13] MEDS: Divalproex (12 HR) 500 MG TABLET PO SCH (08:57)
--- NOTE | 2019-06-13 09:23 | Psychiatry Progress Note ---
Date of Encounter: 06/13/19 Time of Encounter: 09:19 Subjective Interval history: Client continues to endorse SI but reports suicidal thoughts are less intense. States his medical issues have him down and sometimes he just doesn't want to deal with his health problems anymore. Has a history of three prior attempts. High risk given his medical and mental health issues. However, client reports the medications of [place], Depakote, Trilafon, and Celexa work well for him. These meds were restarted over the weekend. Will give him time to stabilize. Plan will be to discharge back to [facility]. Client has some future orientation as he reports he enjoys the groups at the [facility] and his daughter visited him there last weekend for the first time in six years. Review of Systems Constitutional: Denies: fever, chills, weakness, weight change Eyes: Denies: eye pain, vision change Ears, Nose, Throat: Denies: ear pain, throat pain, dental pain, hearing loss, congestion Cardiovascular: Reports: other Respiratory: Reports: other Gastrointestinal: Denies: abdominal pain, nausea, vomiting, diarrhea, constipation Musculoskeletal: Reports: other Neurological: Reports: other Psychiatric: Reports: depression, abnormal sleep pattern, suicidal ideation, anhedonia, difficulty concentrating, hopelessness. Denies: homicidal ideation, auditory hallucinations, visual hallucinations Results - Vital Signs Vital Signs: Temp Pulse Resp BP Pulse Ox 97.2 F L 79 16 121/71 97 06/12/19 21:00 06/12/19 21:00 06/12/19 21:00 06/12/19 21:00 06/12/19 21:00 - Labs Labs: Laboratory Results - last 24 hr 06/12/19 06/12/19 06/12/19 07:00 09:39 11:50 PT 11.0 INR 1.0 POC Glucose 432 H* 286 H Valproic Acid 06/12/19 06/12/19 06/13/19 16:39 21:08 07:48 PT INR POC Glucose 260 H 153 H 145 H Valproic Acid 06/13/19 06/13/19 08:19 08:19 PT 10.4 INR 0.9 POC Glucose Valproic Acid 35 L Assessment and Plan (1) Bipolar disorder current episode depressed Current visit: Yes Status: Acute Plan: Continue hospitalization, Close observation, Suicide Precautions per unit protocol, Encourage participation in unit milieu, Group Therapy, Monitor sleep, Monitor appetite Risks, benefits, side effects, alternatives discussed w/pt: Yes Patient agreeable to treatment: Yes Qualifiers: Current episode severity: severe Psychotic features: without psychotic features Qualified Code(s): F31.4 - Bipolar disorder, current episode depressed, severe, without psychotic features Consult Discharge Plan - Plan Referrals: [facility] [Other] (You will be returning to [facility] in [place], [place] upon discharge from the hospital. While there, you will be seen daily by [facility] counselors and rn case manager hospice, both individually and in group. Please work with [facility] staff to develop a treatment plan based on your individual needs and goals. ) Psychiatry Exam - Constitutional Vitals: Temp Pulse Resp BP Pulse Ox 97.2 F L 79 16 121/71 97 06/12/19 21:00 06/12/19 21:00 06/12/19 21:00 06/12/19 21:00 06/12/19 21:00 General appearance: thin - Musculoskeletal Gait: slow Station: shaky Strength & Tone: normal for patient - Psychiatric Patient Orientation: Yes Person, Yes Time, Yes Place Level of alertness: Alert Behavior: calm, cooperative Psychomotor activity: Increased Eye Contact: Maintains Eye Contact Mood Description: Depressed Affect description: full range Speech Volume: Normal Speech pattern: normal rate, normal rhythm, normal tone, fluent, spontaneous Language & Vocabulary: consistent with education Thought Process: Linear, Goal Oriented Thought Content: Yes Suicidal ideation, No Homicidal ideation, No Overt delusions Perceptual Disturbances: No Auditory hallucinations, No Visual hallucinations Attention Span Ability: Capable of Focused Attention Memory Description: Grossly Intact Patient Reliability: Reliable Historian Fund of knowledge: Yes abstraction ability, Yes aware of current events Intelligence Estimate: Average Judgment: Limited Insight: Partial
[2019-06-13] MEDS: Acetaminophen 325 MG TABLET PO PRN (14:33)
[2019-06-13] MEDS ORDERED: *HR* Warfarin 3 MG TABLET PO ONE (18:00)
[2019-06-13] MEDS: traZODone 50 MG TABLET PO PRN (21:01)
[2019-06-13] MEDS: Divalproex (12 HR) 250 MG TABLET PO SCH (21:02)
[2019-06-13] MEDS: Lithium Carbonate ER 450 MG TABLET.ER PO SCH (21:03)
[2019-06-14] MEDS: Insulin LISPRO 300 UNITS/3 ML VIAL SQ SCH ×4 (07:54→21:44)
[2019-06-14] MEDS: hydrOXYzine pamoate 25 MG CAPSULE PO SCH (08:57)
[2019-06-14] MEDS: *HR* Metformin 500 MG TABLET PO SCH ×2 (08:57→17:21)
[2019-06-14] MEDS: Finasteride 5 MG TABLET PO SCH (08:58)
[2019-06-14] MEDS: *HR* GlipiZIDE XL (24 HR) 2.5 MG TABLET PO SCH (08:58)
[2019-06-14] MEDS: Divalproex (12 HR) 500 MG TABLET PO SCH (08:58)
[2019-06-14] MEDS: Perphenazine 2 MG TABLET PO SCH ×2 (08:59→21:35)
[2019-06-14] MEDS: Aspirin 81 MG TAB.CHEW PO SCH (09:01)
[2019-06-14 11:18] LABS: Basophils % 0.5 %; Eosinophils # 0.8 K/mcL (0.0-0.6); Eosinophils % 10.9 %; Hematocrit 45.7 % (37.5-50.1); Immature Granulocytes % 0.3 % (0-4); Lymphocytes # 1.8 K/mcL (0.6-4.6); Lymphocytes % 24.6 %; Mean Corpuscular HGB Conc 33.3 g/dL (31.6-35.5); Mean Corpuscular Hemoglobin 30.8 pg (28.0-33.3); Mean Corpuscular Volume 92.7 fL (83.0-100.0); Mean Platelet Volume 9.7 fL (9.4-12.4); Monocytes # 0.4 K/mcL (0.0-1.3); Neutrophils # 4.3 K/mcL (1.6-8.9); Platelet Count 206 K/mcL (140-400); Red Blood Count 4.93 M/mcL (4.19-5.50); Red Cell Distribution Width 13.6 % (11.5-14.5); Segmented Neutrophils % 57.7 %; White Blood Count 7.4 K/mcL (4.3-11.1)
--- NOTE | 2019-06-14 11:20 | Psychiatry Progress Note ---
Date of Encounter: 06/14/19 Time of Encounter: 11:17 Subjective Interval history: Client states his medications are starting to work. Continues to endorse SI but notices some improvement in mood. Did not sleep well last night but a loud and disruptive patient was admitted to the unit. Had been sleeping well prior to last night. Appetite is good. Weary of medical problems but has some future orientation. Seems to enjoy groups. However, doesn't feel ready to leave hospital. Does not think he could maintain his safety back at the [facility] yet but thinks things are headed in the right direction. Review of Systems Constitutional: Reports: weakness Eyes: Denies: eye pain, vision change Ears, Nose, Throat: Denies: ear pain, throat pain, dental pain, hearing loss, congestion Cardiovascular: Reports: other Respiratory: Reports: other. Denies: cough, dyspnea, wheezes Gastrointestinal: Denies: abdominal pain, nausea, vomiting, diarrhea, constipation Musculoskeletal: Reports: other Neurological: Reports: other Psychiatric: Reports: depression, abnormal sleep pattern, suicidal ideation, anhedonia, difficulty concentrating, hopelessness. Denies: homicidal ideation, auditory hallucinations, visual hallucinations Results - Vital Signs Vital Signs: Temp Pulse Resp BP Pulse Ox 98.6 F 84 18 129/74 98 06/13/19 21:00 06/13/19 21:00 06/13/19 21:00 06/13/19 21:00 06/13/19 21:00 - Labs Labs: Laboratory Results - last 24 hr 06/13/19 06/13/19 06/13/19 11:39 16:40 20:55 POC Glucose 196 H 129 H 286 H 06/14/19 07:50 POC Glucose 91 Assessment and Plan (1) Bipolar disorder current episode depressed Current visit: Yes Status: Acute Plan: Continue hospitalization, Close observation, Suicide Precautions per unit protocol, Encourage participation in unit milieu, Group Therapy, Monitor sleep, Monitor appetite Risks, benefits, side effects, alternatives discussed w/pt: Yes Patient agreeable to treatment: Yes Qualifiers: Current episode severity: severe Psychotic features: without psychotic features Qualified Code(s): F31.4 - Bipolar disorder, current episode depressed, severe, without psychotic features Consult Discharge Plan - Plan Referrals: [facility] [Other] (You will be returning to [facility] in [place], [place] upon discharge from the hospital. While there, you will be seen daily by [facility] counselors and case resource manager, both individually and in group. Please work with [facility] staff to develop a treatment plan based on your individual needs and goals. ) Psychiatry Exam - Constitutional Vitals: Temp Pulse Resp BP Pulse Ox 98.6 F 84 18 129/74 98 06/13/19 21:00 06/13/19 21:00 06/13/19 21:00 06/13/19 21:00 06/13/19 21:00 General appearance: thin - Musculoskeletal Gait: slow Station: shaky Strength & Tone: normal for patient - Psychiatric Patient Orientation: Yes Person, Yes Time, Yes Place Level of alertness: Alert Behavior: calm, cooperative Psychomotor activity: Increased Eye Contact: Maintains Eye Contact Mood Description: Depressed Affect description: congruent with mood Speech Volume: Normal Speech pattern: normal rate, normal rhythm, normal tone, fluent, spontaneous Language & Vocabulary: consistent with education Thought Process: Linear Thought Content: Yes Suicidal ideation, No Homicidal ideation, No Overt delusions Perceptual Disturbances: No Auditory hallucinations, No Visual hallucinations Attention Span Ability: Capable of Focused Attention Memory Description: Grossly Intact Patient Reliability: Reliable Historian Fund of knowledge: Yes abstraction ability, Yes aware of current events Intelligence Estimate: Average Judgment: Fair Insight: Partial
[2019-06-14 11:27] LABS: INR 1.2; Prothrombin Time 13.1 Seconds (9.4-12.1)
[2019-06-14 11:34] LABS: Alanine Aminotransferase 6 Units/L (7-52); Albumin 4.4 g/dL (3.5-5.7); Albumin/Globulin Ratio 1.8 (1.1-2.2); Alkaline Phosphatase 60 Units/L (34-104); Aspartate Amino Transferase 13 Units/L (13-39); BUN/Creatinine Ratio 21 (6-26); Bilirubin,Total 0.5 mg/dL (0.3-1.0); Blood Urea Nitrogen 23 mg/dL (6-20); Calcium 9.8 mg/dL (8.6-10.3); Carbon Dioxide 28 mEq/L (23-29); Chloride 101 mEq/L (98-107); Chol/HDL Ratio 4.2 (0-4.9); Cholesterol 151 mg/dL (< 200); Globulin 2.5 g/dL (2.4-3.5); Glucose 230 mg/dL (70-105); HDL Cholesterol 36 mg/dL (40-59); LDL Cholesterol,Calculated 63 mg/dL (0-99); Osmolality,Calculated 291 (280-300); Potassium 4.6 mEq/L (3.5-5.1); Sodium 135 mEq/L (136-145); Total Protein 6.9 g/dL (6.4-8.9); Triglycerides 259 mg/dL (< 150); eGFR For African Americans > 60 (> 60); eGFR For Non-African Americans > 60 (> 60)
[2019-06-14 12:02] LABS: Estimated Average Glucose 200 mg/dl
[2019-06-14 14:15] LABS: Hemoglobin 15.2 g/dL (12.9-16.9)
[2019-06-14] MEDS ORDERED: *HR* Warfarin 3 MG TABLET PO ONE (18:00)
[2019-06-14] MEDS: hydrOXYzine pamoate 25 MG CAPSULE PO PRN (19:43)
[2019-06-14] MEDS: Lithium Carbonate ER 450 MG TABLET.ER PO SCH (21:33)
[2019-06-14] MEDS: traZODone 50 MG TABLET PO PRN (21:34)
[2019-06-14] MEDS: Divalproex (12 HR) 250 MG TABLET PO SCH (21:35)
[2019-06-15] MEDS: *HR* GlipiZIDE XL (24 HR) 2.5 MG TABLET PO SCH (08:29)
[2019-06-15] MEDS: Aspirin 81 MG TAB.CHEW PO SCH (08:29)
[2019-06-15] MEDS: hydrOXYzine pamoate 25 MG CAPSULE PO SCH (08:29)
[2019-06-15] MEDS: Finasteride 5 MG TABLET PO SCH (08:30)
[2019-06-15] MEDS: *HR* Metformin 500 MG TABLET PO SCH (08:30)
[2019-06-15] MEDS: Divalproex (12 HR) 500 MG TABLET PO SCH (08:30)
[2019-06-15] MEDS: Perphenazine 2 MG TABLET PO SCH (08:32)
[2019-06-15] MEDS: Insulin LISPRO 300 UNITS/3 ML VIAL SQ SCH ×2 (08:34→12:46)
[2019-06-15 10:08] VITALS: BP 149/96
[2019-06-15 10:24] LABS: INR 1.4; Prothrombin Time 15.8 Seconds (9.4-12.1)
--- NOTE | 2019-06-15 12:56 | Discharge Summary ---
Date of Encounter: 06/15/19 Time of Encounter: 12:49 Diagnosis - Discharge Diagnosis (1) Bipolar disorder current episode depressed Status: Acute Qualifiers: Current episode severity: severe Psychotic features: without psychotic features Qualified Code(s): F31.4 - Bipolar disorder, current episode depressed, severe, without psychotic features Medications - Discharge Medications Prescriptions: Citalopram Hydrobromide [Citalopram HBr] 10 mg PO DAILY #30 tablet Benztropine [Cogentin] 2 mg PO HS #60 tablet Divalproex (12 HR) [Depakote (12 HR)] 750 mg PO HS #90 tablet. Divalproex (12 HR) [Depakote (12 HR)] 500 mg PO QAM #30 tablet. Osakis Carbonate ER [Eskalith] 450 mg PO HS #30 tablet.er hydrOXYzine HCl [Hydroxyzine HCl] 50 mg PO DAILY #30 tablet Perphenazine 4 mg PO BID #60 tablet Aspirin 81 mg PO DAILY #14 tab.chew 06/03/19 [Rx] Atorvastatin [Lipitor] 10 mg PO HS #14 tablet 06/03/19 [Rx] Carbidopa/Levodopa 10/100 [Sinemet 10/100] 1 each PO DAILY #14 tablet 06/03/19 [Rx] Carvedilol 3.125 mg PO DAILY #14 tablet 06/03/19 [Rx] Finasteride [Proscar] 5 mg PO DAILY #14 tablet 06/03/19 [Rx] GlipiZIDE [Glipizide Xl] 5 mg PO DAILY #14 tab.er.24 06/03/19 [Rx] Lisinopril 2.5 mg PO DAILY #14 tablet 06/03/19 [Rx] Warfarin Sodium 3 mg PO DAILY #14 tablet 06/03/19 [Rx] metFORMIN [Glucophage] 1,000 mg PO BIDWM 14 Days tablet 06/03/19 [Rx] Benztropine [Cogentin] 2 mg PO HS #60 tablet 06/15/19 [Rx] Citalopram Hydrobromide [Citalopram HBr] 10 mg PO DAILY #30 tablet 06/15/19 [Rx] Divalproex (12 HR) [Depakote (12 HR)] 500 mg PO QAM #30 tablet. 06/15/19 [Rx] Divalproex (12 HR) [Depakote (12 HR)] 750 mg PO HS #90 tablet. 06/15/19 [Rx] Osakis Carbonate ER [Eskalith] 450 mg PO HS #30 tablet.er 06/15/19 [Rx] Perphenazine 4 mg PO BID #60 tablet 06/15/19 [Rx] hydrOXYzine HCl [Hydroxyzine HCl] 50 mg PO DAILY #30 tablet 06/15/19 [Rx] Allergy/AdvReac Type Severity Reaction Status Date / Time naproxen [From Naprosyn] AdvReac Difficulty Verified 06/05/19 18:31 Breathing Results Procedures and tests throughout hospitalization: Completed Lab Orders Category Date Time Status Acetaminophen Stat Lab 06/11/19 07:52 Completed Basic Metabolic Panel Stat Lab 06/11/19 07:52 Completed Complete Blood Count [HEME] Routine Lab 06/14/19 10:58 Completed Complete Blood Count [HEME] Stat Lab 06/11/19 07:52 Completed Comprehensive Metabolic Panel Routine Lab 06/14/19 10:58 Completed Drug Screen, Urine [UCHEM] Stat Lab 06/11/19 08:55 Completed Ethanol Stat Lab 06/11/19 07:52 Completed Hgb A1C Routine Lab 06/14/19 10:58 Completed Lipid Panel Routine Lab 06/14/19 10:58 Completed Osakis AM 0400 Lab 06/15/19 09:30 Completed PT/INR [Prothrombin Time INR] [COAG] AM 0400 Lab 06/13/19 08:19 Completed PT/INR [Prothrombin Time INR] [COAG] AM 0400 Lab 06/14/19 10:58 Completed PT/INR [Prothrombin Time INR] [COAG] AM 0400 Lab 06/15/19 09:30 Completed PT/INR [Prothrombin Time INR] [COAG] Routine Lab 06/12/19 07:00 Completed PT/INR [Prothrombin Time INR] [COAG] Stat Lab 06/11/19 07:55 Completed Salicylate Stat Lab 06/11/19 07:52 Completed Urinalysis reflex Microscopic [URIN] Stat Lab 06/11/19 08:55 Completed Valproate AM 0400 Lab 06/13/19 08:19 Completed Provider Date of admission: 06/11/19 15:15 Primary care physician: PCP NONE Discharging clinician: Shilpi Suazo Psychiatry Exam - Constitutional Vitals: Temp Pulse Resp BP Pulse Ox 98.7 F 84 18 149/96 99 06/15/19 09:00 06/15/19 09:00 06/15/19 09:00 06/15/19 09:00 06/15/19 09:00 General appearance: age & developmentally appropriate, well-groomed, well- nourished - Musculoskeletal Gait: normal Station: relaxed Strength & Tone: normal for patient - Psychiatric Patient Orientation: Yes Person, Yes Time, Yes Place Level of alertness: Alert Behavior: calm, cooperative Psychomotor activity: Increased Eye Contact: Maintains Eye Contact Mood Description: Depressed Affect description: full range Speech Volume: Normal Speech pattern: normal rate, normal rhythm, normal tone, fluent, spontaneous Language & Vocabulary: consistent with education Thought Process: Linear, Goal Oriented Thought Content: Yes Suicidal ideation, No Homicidal ideation, No Overt delusions Perceptual Disturbances: No Auditory hallucinations, No Visual hallucinations Attention Span Ability: Capable of Focused Attention Memory Description: Grossly Intact Patient Reliability: Reliable Historian Fund of knowledge: Yes abstraction ability, Yes aware of current events Intelligence Estimate: Average Judgment: Fair Insight: Partial Hospital Course Hospital course: Mr. Cummings is a 53 year old male who was admitted from the [facility] for SI. Client was not on medications at the time of admission but knew the med regimen that had worked to stabilize his mood in the past. Previous diagnosis of Bipolar Disorder. Client was restarted on the medications that had previously worked for him with good clinical results including Osakis, Depakote, Trilafon, and Celexa. Client initially endorsed SI and continued to endorse SI throughout his stay but reported daily improvement. Today client continues to have fleeting SI but states he understands these thoughts may be with him for some time yet. He denies intent or plan. Client states his mood has definitely improved and he feels safe and ready to go. Client states he "has a good support system at the [facility]" and throughout his hospitalization he has spoken highly of the staff there. He has been pleasant and cooperative on the unit. He is eating and sleeping well. Attending and participating in groups. Today he is future oriented and looking forward to discharge. Total time spent with client greater than 30 minutes. Patient was educated of his diagnosis and the risks, benefits, and side effects of this treatment and alternative treatment options and was monitored for responsiveness and side effects. Mood, anxiety, sleep, appetite, and interest improved, as did future orientation. Self-harm thoughts subsided, thinking cleared, psychosis resolved, and mood stabilized. Patient was able to attend both individual and group therapy sessions as well as meeting with the psychiatrist daily and urged to discuss any medication or treatment issues or other concerns. The patient was educated primarily by verbal means about their diagnosis and manifestations in their life. The option for treatment including group and individual therapy programming was offered to the patient in the use of medications with all their potential risks, benefits, and side effects were discussed with the patient at length. The patient was given the opportunity to ask questions and was noted to participate in the treatment in the planning process. The patient felt ready and eager to be discharged from the inpatient psychiatric unit to continue on with treatment as an outpatient. The patient agreed that he is safe for this disposition. The patient was considered to be able to participate in informed consent and decision making with respect to medical, legal, and financial issues of the time of discharge. At the time of d ischarge the patient adamantly denied any concerns for lethality including suicidal or homicidal thoughts ideations or plans and was future oriented toward ongoing mental health care, medical follow-up and sobriety. - Time Spent with Patient Total time spent providing and/or coordinating discharge services: Greater than 30 minutes Assessment and Plan - Patient/Caregiver Discharge Instructions Activity: resume usual activities as tolerated Diet: diabetic diet - Follow up Plan Follow up with: [facility] [Other] (You will be returning to [facility] in [place], [place] upon discharge from the hospital. While there, you will be seen daily by [facility] counselors and high risk case manager, both individually and in group. Please work with [facility] staff to develop a treatment plan based on your individual needs and goals. ) Functional capacity at discharge: independent ambulation Overall status at discharge: Stable Disposition: Transfer Other Quality - Multiple Antipsychotics Patient discharged on 2 or more antipsychotic medications: No Procedures - Procedures Procedures: Medication Management, Crisis Stabilization, Supportive Therapy, Group Therapy
[2019-06-15] MEDS ORDERED: *HR* Warfarin 3 MG TABLET PO ONE (18:00)
== END 2019-06-15 16:45 | disposition home or self-care (01) | DRG 885 ==
LOC: EMEROOARM 07:38 → 1ANU 15:15
PROVIDERS: ADMIT Psychiatry & Neurology Psychiatry; ATTEND Psychiatry & Neurology Psychiatry